=== PATIENT | male | born 1970 | race Caucasian/White ===

== ENCOUNTER 2018-01-03 15:20 | Emergency (ER) | payer OTHER ==
--- NOTE | 2018-01-03 15:24 | EDPHY ---
H & P Time Seen by Provider: 01/03/18 15:23 Constitutional: Initial Vital Signs Temperature (C) 36.9 C 01/03/18 15:23 Heart Rate 91 01/03/18 15:23 Respiratory Rate 16 01/03/18 15:23 Blood Pressure 146/82 H 01/03/18 15:23 O2 Sat (%) 96 01/03/18 15:23 O2 Delivery Mode Room Air Allergies/Adverse Reactions: Penicillins Allergy (Verified 01/03/18 15:26) Sulfa (Sulfonamide Antibiotics) Allergy (Verified 01/03/18 15:26) Home Medications: Medication Instructions Recorded Ciprofloxacin [Cipro] 500 mg PO BID #20 tab 01/03/18 metroNIDAZOLE [Flagyl 500 mg (*)] 500 mg PO BID #20 tab 01/03/18 Medical Decision Making - Diagnostics Imaging Results: Imaging Impressions Abdomen CT 01/03/18 15:32 Impression: 1. Acute uncomplicated sigmoid diverticulitis. 2. Prominent submucosal fat in the terminal ileum, which can be seen with chronic inflammatory sequelae of IBD. Findings were communicated by telephone with Dr. Barry Blanton MD at 2017 16:29 Imaging: Discussed imaging studies w/ tread builder Radiologist, I viewed and interpreted images myself ED Course/Re-evaluation: CHIEF COMPLAINT: Abdominal pain HISTORY OF PRESENT ILLNESS: The patient is a 47 y/o male with a history of an appendectomy and hernia repair complaining of left lower abdominal pain onset 3 days ago. The pain is exacerbated with movement, walking, or touching the sore area. He initially thought the pain was due to constipation, but after it did not improve in several days he decided to see his PCP, Dr. Flanagan., who advised that the patient present to the emergency department. Denies nausea, vomiting, fever, and chills. Denies having a colonoscopy or familial history of diverticulitis. His last bowel movement was this afternoon and there was no blood present. Denies chest pain, shortness of breath, urinary complaints, numbness or paresthesias. REVIEW OF SYSTEMS: A 10 point review of systems was performed and is negative with the exception of the elements mentioned in the history of present illness. PHYSICAL EXAM: HR, BP, O2 Sat, RR. Temp noted General Appearance: Alert, well hydrated, appropriate, and non-toxic appearing. Head: Atraumatic without scalp tenderness or obvious injury Eyes: Pupils equal, round, reactive to light and accommodation, EOMI, no trauma , no injection. Ears: Clear bilaterally, no perforation, normal landmarks Nose: Atraumatic, no rhinorrhea, clear. Throat: There is no erythema or exudates, no lesions, normal tonsils, mucus membranes moist. Neck: Supple, nontender, no lymphadenopathy. Respiratory: No retractions, no distress, no wheezes, and no accessory muscle use. Lungs are clear to auscultation bilaterally. Cardiovascular: Regular rate and rhythm, no murmurs, rubs, or gallops. Bilateral carotid, radial, dorsalis pedis, and posterior tibial pulses intact. Good capillary refill all extremities. Gastrointestinal: Abdomen is soft, nontender, non-distended, no masses, no rebound, no guarding, there are peritoneal signs. Musculoskeletal: Normal active ROM of all extremities, atraumatic. Neurological: Alert, appropriate, and interactive. Nonfocal neuro. Skin: No rashes, good turgor, no nodules on palpation. Past medical history:Denies Past surgical history: Appendectomy, hernia surgery Family history: Denies Social history: , lives in [place], employed at [employer] DIAGNOSTICS/PROCEDURES/CRITICAL CARE TIME: Abdominopelvic CT: Uncomplicated sigmoid diverticulitis DIFFERENTIAL DIAGNOSIS: The differential diagnosis for the patient's abdominal pain included but was not limited to appendicitis, cholecystitis, hernias, testicular torsion, gastritis, and urinary tract infection. MEDICAL DECISION MAKING: The patient is a 47 y/o male with a history of an appendectomy and hernia repair presenting with left lower abdominal pain onset 3 days ago. On exam the patient has a soft abdomen with peritoneal signs. Labs and abdominopelvic CT ordered; 1L IV NS administered. 1557: Patient has a WBC of 14.56 1624: Spoke with Dr. Warren, radiologist, patient has uncomplicated diverticulitis of the sigmoid colon. 1636: Reassessed patient and discussed laboratory and imaging findings. I have advised him to follow up with a outcomes analyst and take Cipro and Flagyl. His first dose of these antibiotics were given prior to discharge. Return precautions provided; patient is comfortable with this plan. 1644: Consulted with Dr. Flanagan, patient's PCP, regarding patient's finding in the emergency department. He will follow up with this patient next week. - Data Points Laboratory Results: Laboratory Results 01/03/18 15:42 01/03/18 15:42 01/03/18 01/03/18 01/03/18 15:47 15:42 15:42 WBC 14.56 10^3/uL H 10^3/uL (3.80-9.50) RBC 4.91 10^6/uL 10^6/uL (4.40-6.38) Hgb 15.6 g/dL g/dL (13.7-17.5) POC Hgb 16.0 gm/dL gm/dL (13.7-17.5) Hct 44.4 % % (40.0-51.0) POC Hct 47 % % (40-51) MCV 90.4 fL fL (81.5-99.8) MCH 31.8 pg pg (27.9-34.1) MCHC 35.1 g/dL g/dL (32.4-36.7) RDW 12.2 % % (11.5-15.2) Plt Count 255 10^3/uL 10^3/uL (150-400) MPV 9.8 fL fL (8.7-11.7) Neut % (Auto) 68.2 % % (39.3-74.2) Lymph % (Auto) 20.1 % % (15.0-45.0) [place] % (Auto) 8.2 % % (4.5-13.0) Eos % (Auto) 2.7 % % (0.6-7.6) Baso % (Auto) 0.5 % % (0.3-1.7) Nucleat RBC Rel Count 0.0 % % (0.0-0.2) Absolute Neuts (auto) 9.92 10^3/uL H 10^3/uL (1.70-6.50) Absolute Lymphs (auto) 2.93 10^3/uL 10^3/uL (1.00-3.00) Absolute Monos (auto) 1.20 10^3/uL H 10^3/uL (0.30-0.80) Absolute Eos (auto) 0.39 10^3/uL 10^3/uL (0.03-0.40) Absolute Basos (auto) 0.08 10^3/uL 10^3/uL (0.02-0.10) Absolute Nucleated RBC 0.00 10^3/uL 10^3/uL (0-0.01) Immature Gran % 0.3 % % (0.0-1.1) Immature Gran # 0.04 10^3/uL 10^3/uL (0.00-0.10) POC Sodium 141 mEq/L mEq/L (135-145) Sodium 140 mEq/L mEq/L (135-145) POC Potassium 3.8 mEq/L mEq/L (3.3-5.0) Potassium 4.0 mEq/L mEq/L (3.3-5.0) POC Chloride 105 mEq/L mEq/L (97-110) Chloride 106 mEq/L mEq/L (97-110) Carbon Dioxide 24 mEq/l mEq/l (22-31) Anion Gap 10 mEq/L mEq/L (8-16) POC BUN 23 mg/dL mg/dL (7-23) BUN 21 mg/dL mg/dL (7-23) Creatinine 0.9 mg/dL mg/dL (0.7-1.3) POC Creatinine 1.0 mg/dL mg/dL (0.7-1.3) Estimated GFR > 60 Glucose 102 mg/dL H mg/dL (70-100) POC Glucose 109 mg/dL H mg/dL (70-100) Calcium 9.6 mg/dL mg/dL (8.5-10.4) Total Bilirubin 0.4 mg/dL mg/dL (0.1-1.4) Conjugated Bilirubin 0.4 mg/dL mg/dL (0.0-0.5) Unconjugated Bilirubin 0.0 mg/dL mg/dL (0.0-1.1) AST 34 IU/L IU/L (17-59) ALT 49 IU/L IU/L (21-72) Alkaline Phosphatase 89 IU/L IU/L (38-126) Total Protein 7.2 g/dL g/dL (6.3-8.2) Albumin 4.1 g/dL g/dL (3.5-5.0) Lipase 67 IU/L IU/L (23-300) Medications Given: Discontinued Medications Ciprofloxacin (Cipro) 500 mg PO EDNOW ONE PRN Reason: Protocol Stop: 01/03/18 16:29 Last Admin: 01/03/18 16:39 Dose: 500 mg Sodium Chloride (Ns) 1,000 mls @ 0 mls/hr IV EDNOW ONE; Wide Open PRN Reason: Protocol Stop: 01/03/18 15:33 Last Admin: 01/03/18 15:47 Dose: 1,000 mls Metronidazole (Flagyl) 500 mg PO EDNOW ONE PRN Reason: Protocol Stop: 01/03/18 16:29 Last Admin: 01/03/18 16:38 Dose: 500 mg Point of Care Test Results: Chemistry 01/03/18 15:47 POC Sodium 141 mEq/L mEq/L (135-145) POC Potassium 3.8 mEq/L mEq/L (3.3-5.0) POC Chloride 105 mEq/L mEq/L (97-110) POC BUN 23 mg/dL mg/dL (7-23) POC Creatinine 1.0 mg/dL mg/dL (0.7-1.3) POC Glucose 109 mg/dL H mg/dL (70-100) ISTAT H&H 01/03/18 15:47 POC Hgb 16.0 gm/dL gm/dL (13.7-17.5) POC Hct 47 % % (40-51) Departure - Departure Disposition: Home, Routine, Self-Care Clinical Impression: Diverticulitis of sigmoid colon Condition: Good Instructions: Diverticulitis (ED) Additional Instructions: 1. Take Cipro and Flagyl as prescribed. 2. Follow-up with a outcomes analyst, you have been referred to Dr. Medley. 3. Follow-up with your primary doctor within 72 hours. 4. Return to the Emergency Department for fever, chest pain, shortness of breath , increasing pain or other worsening of condition. Referrals: Mansoor Flanagan MD [Primary Care Provider] - As per Instructions Delmar Medley MD [Medical Doctor] - As per Instructions Prescriptions: Ciprofloxacin [Cipro] 500 mg PO BID #20 tab metroNIDAZOLE [Flagyl 500 mg (*)] 500 mg PO BID #20 tab Report Scribed for: Barry Blanton Report Scribed by: Elsy Prasad Date of Report: 01/03/18 Time of Report: 15:23
[2018-01-03] MEDS ORDERED: NS 1,000 ML IV ONE (15:32)
[2018-01-03] MEDS ORDERED: IOPAMIDOL (ISOVUE-300) 100 ML BTL ONE (15:50)
[2018-01-03 15:54] LABS: PLATELET COUNT 255 10^3/uL (150-400)
[2018-01-03] MEDS ORDERED: metroNIDAZOLE 500 MG TAB PO ONE (16:28)
[2018-01-03] MEDS ORDERED: CIPROFLOXACIN 500 MG TAB PO ONE (16:28)
[2018-01-03 16:47] VITALS: BP 148/94
== END 2018-01-03 16:46 | disposition home or self-care (01) ==
DX: K57.30 Diverticulosis of large intestine without perforation or abscess without bleeding (principal); E86.9 Volume depletion, unspecified
CPT/HCPCS: 82435-PO; 82565-PO; 82947-PO; 84132-PO; 84295-PO; 84520-PO; 85014-PO; Q9967